=== PATIENT | male | born 1975 | race Caucasian/White ===

== ENCOUNTER 2016-10-22 10:06 | Emergency (ER) | payer SELFPAY | END 2016-10-22 14:50 | disposition home or self-care (01) | LOC: D.ER 10:06 | DX: S92.401A Displaced unspecified fracture of right great toe, initial encounter for closed fracture (principal); X58.XXXA Exposure to other specified factors, initial encounter; Y93.89 Activity, other specified; Y92.89 Other specified places as the place of occurrence of the external cause; S91.111A Laceration without foreign body of right great toe without damage to nail, initial encounter; E11.9 Type 2 diabetes mellitus without complications ==